=== PATIENT | male | born 1985 | race Caucasian/White ===

== ENCOUNTER 2018-08-14 21:23 | Emergency (ER) | payer BC ==
[~2018-08-14] VITALS: Ht 167.6 cm; Wt 72.6 kg
--- NOTE | 2018-08-14 21:31 | NUR ---
PATIENT BIB TO ED BY SELF FOR ABD PAIN X 20MIN. PT REPORTS ABDOMINAL/EPIGASTRIC PAIN OCCURING 20MIN AFTER TAKING MULTIVITAMINS. PT REPORTS ATTEMPTING TO MAKE HIMSELF VOMMIT BUT WAS UNABLE TO. ABD SOFT, FLAT, TENDER TO TOUCH IN EPIGASTRIC REGION. DENIES N/V/D OR FEVER; PATIENT STATES PAIN OF 10/10 AT THIS TIME; VSS; PATIENT POSITIONED FOR COMFORT; HOB ELEVATED; BEDRAILS UP X2; BED DOWN. ER MD MADE AWARE OF PT STATUS.
[2018-08-14 21:32] VITALS: BP 140/85
--- NOTE | 2018-08-14 21:32 | NUR ---
TO BED # 11 AMBULATORY ,REPORT GIVEN TO MARAL MERIDA
--- NOTE | 2018-08-14 21:37 | NUR ---
Dr. Garza evaluating patient at bedside.
[2018-08-14] MEDS ORDERED: DICYCLOMINE 20 MG/2 ML VIAL IM ONE (21:45)
[2018-08-14] MEDS ORDERED: ONDANSETRON 4 MG ODT PO ONE (21:45)
[2018-08-14 22:01] LABS: ANION GAP 15.7 (8-16); CARBON DIOXIDE 29.9 mmol/L (21-32); CREATININE 1.3 mg/dL (0.7-1.3); POTASSIUM 3.6 mmol/L (3.5-5.1)
[2018-08-14 22:06] LABS: ALBUMIN 4.3 g/dL (3.4-5.0); TOTAL BILIRUBIN 0.3 mg/dL (0.0-1.0)
[2018-08-14 22:30] VITALS: BP 133/77
--- NOTE | 2018-08-14 22:30 | NUR ---
Patient discharged with v/s stable. Written and verbal after care instructions given and explained. Patient alert, oriented and verbalized understanding of instructions. Ambulatory with steady gait. All questions addressed prior to discharge. ID band removed. Patient advised to follow up with PMD. Rx of Bentyl and Zofran ODT given. Patient educated on indication of medication including possible reaction and side effects. Opportunity to ask questions provided and answered.
== END 2018-08-14 22:30 | disposition home or self-care (01) ==
LOC: MED 21:23
DX: R10.9 Unspecified abdominal pain (principal)
CPT/HCPCS: 36415; 80053; 83690; 96372; 99283; J0500; Q0162

== ENCOUNTER 2018-12-24 23:38 | Emergency (ER) | payer BC ==
[~2018-12-24] VITALS: Ht 170.2 cm; Wt 72.6 kg
[2018-12-25 00:18] VITALS: BP 133/75
--- NOTE | 2018-12-25 00:21 | NUR ---
TO LOBBY A/W BED, XRAY, AMBULATORY, VSS.
--- NOTE | 2018-12-25 01:00 | NUR ---
AMBULATED TO ER BED 4
--- NOTE | 2018-12-25 01:20 | NUR ---
33 YO M C/O 6/10 SHARP PAIN TO THE 5TH DIGIT OF HIS LEFT HAND. PT STATES HE BRUSHED HIS HAND AGAINST PIECE OF SPLINTERED WOOD AND RECEIVED A LARGE SPLINTER INTO HIS FINGER. PT STATES HE TRIED TO REMOVE THE SPLINTER BUT IT BROKE OFF. MILD REDNESS AND SWELLING NOTED TO LEFT 5TH DIGIT. PUNCTURE WOUND VISIBLE. NO DRAINAGE OR ACTIVE BLEEDING AT THIS TIME. PMH: DENIES RX: DENIES
--- NOTE | 2018-12-25 01:30 | NUR ---
ERMD EVALUATING AT BEDSIDE.
[2018-12-25 01:56] VITALS: BP 133/75
== END 2018-12-25 01:56 | disposition home or self-care (01) ==
LOC: MED 23:38
DX: M79.645 Pain in left finger(s) (principal); M79.89 Other specified soft tissue disorders
CPT/HCPCS: 73140; 99283

== ENCOUNTER 2019-02-09 20:54 | Emergency (ER) | payer BC ==
[~2019-02-09] VITALS: Ht 167.6 cm; Wt 72.6 kg
[2019-02-09 21:22] VITALS: BP 151/90
--- NOTE | 2019-02-09 21:25 | NUR ---
PT TO LOBBY VSS.
--- NOTE | 2019-02-09 21:54 | NUR ---
PT IN LOBBY. SITTING WITHOUT DISTRESS OF ANY TYPE NOTED. CONTINUE TO MONITOR.
--- NOTE | 2019-02-09 22:00 | NUR ---
ASSUMED CARE OF PT AT THIS TIME. C/O RIGHT EAR PAIN/POSSIBLE FB (METAL) X 1 DAY. AAOX4 WITH EVEN AND STEADY GAIT; PATIENT STATES PAIN OF 5/10; VSS; PATIENT POSITIONED FOR COMFORT; HOB ELEVATED; BEDRAILS UP X2; BED DOWN. ER MD MADE AWARE OF PT STATUS. WILL CONTINUE TO MONITOR.
[2019-02-09 22:35] VITALS: BP 151/90
--- NOTE | 2019-02-09 22:35 | NUR ---
Patient discharged with v/s stable. Written and verbal after care instructions given and explained. Patient verbalized understanding. Ambulatory with steady gait. All questions addressed prior to discharge. Advised to follow up with PMD.
== END 2019-02-09 22:35 | disposition home or self-care (01) ==
LOC: MED 20:54
DX: H92.01 Otalgia, right ear (principal)
CPT/HCPCS: 99281